=== PATIENT | female | born 1970 | race Hispanic/Latino ===

== ENCOUNTER 2018-09-02 08:56 | Emergency (ER) | payer OTHER ==
[2018-09-02 08:57] VITALS: BMI 34.5
[2018-09-02 08:58] VITALS: RESP 18; TEMP 98.6
[2018-09-02] MEDS ORDERED: Sodium Chloride 0.9% 1,000 ML IV STA (09:21)
--- NOTE | 2018-09-02 09:35 | ED PDOC ---
Syncope/Near Syncope/Dizziness Time Seen by Provider: 09/02/18 09:05 Chief Complaint (Nursing): Weakness/Neurological Deficit Chief Complaint (Provider): I was going to pass out again History Per: Patient History/Exam Limitations: no limitations Onset/Duration Of Symptoms: Sudden Onset Current Symptoms Are (Timing): Intermittent Episodes Associated Symptoms Preceding Syncopal Episode: Lightheadedness Possible Causative Factor(s): Lightheaded W/Standing, Lightheaded W/Exertion Fall Associated With With Symptoms: No Severity: Moderate Additional Complaint(s): 47yo female [place] via [place] where [place] States these episodes are happening more frequently, was seen at [facility] thursday and told she has a virus. Denies vomiting or diarrhea. Admits to mild headache, chest pain but denies SOB, orthopnea, leg pain/edema or hx blood clots. States dizzy episodes happened before had stress test many years ago never given formal diagnosis but symptoms now becoming more frequent and concerning. Past Medical History Reviewed: Historical Data, Nursing Documentation, Vital Signs Vital Signs: Last Vital Signs Temp 98.6 F 09/02/18 08:57 Pulse 67 09/02/18 08:57 Resp 18 09/02/18 08:57 BP 149/92 H 09/02/18 08:57 Pulse Ox 100 09/02/18 08:57 - Medical History PMH: No Chronic Diseases - Surgical History Other surgeries: BTL, myomectomy - Family History Family History: States: Unknown Family Hx - Social History Current smoker - smoking cessation education provided: No - Allergies Allergies/Adverse Reactions: Allergies Allergy/AdvReac Type Severity Reaction Status Date / Time No Known Allergies Allergy Verified 09/02/18 09:20 Review of Systems Constitutional: Negative for: Fever ENT: Negative for: Nose Discharge, Throat Pain Cardiovascular: Positive for: Chest Pain, Palpitations Respiratory: Negative for: Cough, Shortness of Breath Gastrointestinal: Negative for: Vomiting, Abdominal Pain, Diarrhea Genitourinary Female: Negative for: Dysuria, Vaginal Discharge, Vaginal Bleeding Musculoskeletal: Negative for: Neck Pain Skin: Negative for: Rash Neurological: Positive for: Weakness (generalized), Headache, Dizziness. Negative for: Incoordination, Change in Speech, Altered Mental Status Psych: Negative for: Anxiety, Suicidal ideation Physical Exam - Reviewed Nursing Documentation Reviewed: Yes Vital Signs Reviewed: Yes - Physical Exam Appears: Positive for: Non-toxic (tearful), No Acute Distress Head Exam: Positive for: ATRAUMATIC, NORMAL INSPECTION, NORMOCEPHALIC Skin: Positive for: Normal Color, Warm, DRY Eye Exam: Positive for: EOMI, Normal appearance, PERRL ENT: Positive for: Normal ENT Inspection Neck: Positive for: Normal, Painless ROM Cardiovascular/Chest: Positive for: Regular Rate, Rhythm Respiratory: Positive for: CNT, Normal Breath Sounds Pulses-Radial (L): 3+/4+ Pulses-Radial (R): 3+/4+ Gastrointestinal/Abdominal: Positive for: Soft. Negative for: Tenderness Back: Positive for: Normal Inspection Extremity: Positive for: Normal ROM. Negative for: Tenderness, Calf Tenderness, Swelling Neurologic/Psych: Positive for: Alert, down filler II-XII (intact), Oriented, Other (clear speech). Negative for: Motor/Sensory Deficits, Aphasia - Laboratory Results Result Diagrams: 09/02/18 09:25 09/02/18 09:25 - ECG ECG: Positive for: Interpreted By Me ECG Rhythm: Positive for: Normal QRS, Sinus Rhythm, Nonspecific Changes Rate: 76 O2 Sat by Pulse Oximetry: 100 Pulse Ox Interpretation: Normal Medical Decision Making Medical Decision Making: workup for recurrent presyncope initiated labs, EKG, CT brain and echo ordered labs reviewed DDimer neg hgb normal trop neg Preg neg Echo prelim report unremarkable awaiting cardiology read but patient now asymptomatic can followup as outpatient for result Has PMD in [place], will see for holter monitor and further testing orthostatics unremarkable Disposition - Clinical Impression Clinical Impression: Pre-syncope - Patient ED Disposition Is Patient to be Admitted: No Counseled Patient/Family Regarding: Studies Performed, Diagnosis, Need For F ollowup - Disposition Referrals: [facility] [Outside] William Rice MD [Staff Provider] - Disposition: Routine/Home Disposition Time: 14:05 Condition: STABLE Additional Instructions: Drink plenty of fluids. Avoid arising quickly from seated positions. See clinic for further testing and treatment and official report of echocardiogram. Instructions: Near Fainting (DC) Forms: [employer] (Slovenian)
[2018-09-02 09:36] LABS: BASO # 0.1 K/uL (0.0-0.2); BASO % 1.7 % (0.0-2.0); EOS # 0.2 K/uL (0.0-0.7); EOS % 3.6 % (0.0-4.0); HEMOGLOBIN 14.2 g/dL (12.0-16.0); LYMPH % 36.5 % (20.0-40.0); MEAN CELL VOLUME 91.3 fl (81.0-99.0); MEAN CORPUSCULAR HEMOGLOBIN 31.4 pg (27.0-31.0); MEAN CORPUSCULAR HGB CONC 34.4 g/dL (33.0-37.0); MEAN PLATELET VOLUME 8.7 fl (7.2-11.7); MONO # 0.3 K/uL (0.0-0.8); MONO % 6.3 % (0.0-10.0); NEUT # 2.9 K/uL (1.8-7.0); NEUT % 51.9 % (50.0-75.0); RBC 4.52 Mil/uL (3.80-5.20); RED CELL DISTRIBUTION WIDTH 13.7 % (11.5-14.5); WHITE BLOOD COUNT 5.5 K/uL (4.8-10.8)
[2018-09-02 09:48] LABS: ALB/GLOB RATIO 1.1 (1.0-2.1); ALBUMIN 4.3 g/dL (3.5-5.0); ALT/SGPT 21 U/L (9-52); AST/SGOT 24 U/L (14-36); BLOOD UREA NITROGEN 12 mg/dl (7-17); CALCIUM 9.6 mg/dL (8.4-10.2); GFR NON-AFRICAN AMERICAN > 60
[2018-09-02 09:59] LABS: B-TYPE NATRIURETIC PEPTIDE 19.5 pg/ml (0-450)
--- NOTE | 2018-09-02 11:06 | CT ---
Date of service: 09/02/2018 PROCEDURE: CT HEAD WITHOUT CONTRAST. HISTORY: dizzy presyncope headache COMPARISON: None available. TECHNIQUE: Axial computed tomography images were obtained through the head/brain without intravenous contrast. Radiation dose: Total exam DLP = 850.73 mGy-cm. This CT exam was performed using one or more of the following dose reduction techniques: Automated exposure control, adjustment of the mA and/or kV according to patient size, and/or use of iterative reconstruction technique. FINDINGS: HEMORRHAGE: No intracranial hemorrhage. BRAIN: No mass effect or edema. No atrophy or chronic microvascular ischemic changes. VENTRICLES: Unremarkable. No hydrocephalus. CALVARIUM: Unremarkable. PARANASAL SINUSES: Unremarkable as visualized. No significant inflammatory changes. MASTOID AIR CELLS: Unremarkable as visualized. No inflammatory changes. OTHER FINDINGS: Old depressed left lamina papyracea fracture. Old fracture posterior inferior medial left orbital wall with bony defect and herniation of orbital fat into left maxillary antrum. IMPRESSION: No intracranial mass, hemorrhage or evidence of acute infarct. Old left orbital injury as described. Otherwise unremarkable.
--- NOTE | 2018-09-02 13:32 | RAD ---
Date of service: 09/02/2018 HISTORY: Dizziness. COMPARISON: No prior. TECHNIQUE: Chest PA and lateral FINDINGS: LUNGS: No active pulmonary disease. PLEURA: No significant pleural effusion identified. No pneumothorax apparent. CARDIOVASCULAR: Normal. OSSEOUS STRUCTURES: No significant abnormalities. VISUALIZED UPPER ABDOMEN: Normal. OTHER FINDINGS: None. IMPRESSION: No active disease.
--- NOTE | 2018-09-02 18:25 | CARD ---
APPROVED REPORT Date of service: 09/02/2018 EXAM: Two-dimensional and M-mode echocardiogram with Doppler and color Doppler. Other Information Quality : Good[employer] : NSR INDICATION Syncope 2D DIMENSIONS IVSd1.09 (0.7-1.1cm)LVDd4.04 (3.9-5.9cm) LVOT Diameter1.79 (1.8-2.4cm)PWd1.24 (0.7-1.1cm) IVSs1.42 (0.8-1.2cm)LVDs2.41 (2.5-4.0cm) FS (%) 40.4 %PWs1.54 (0.8-1.2cm) M-Mode DIMENSIONS Left Atrium (MM)3.37 (2.5-4.0cm)IVSd1.13 (0.7-1.1cm) Aortic Root2.78 (2.2-3.7cm)LVDd4.19 (4.0-5.6cm) Aortic Cusp Exc.1.90 (1.5-2.0cm)PWd1.18 (0.7-1.1cm) IVSs1.54 cmFS (%) 35 % LVDs2.73 (2.0-3.8cm)PWs1.52 cm Aortic Valve AoV Peak Vifjgjry906.7cm/sAoV VTI20.7cmAO Peak GR.6mmHg LVOT Peak Vwxqxywk97.0cm/sLVOT VTI17.82cmAO Mean GR.3mmHg CRYSTAL (VMAX)0.72hg2JMJ (VTI)1.14cm2 Mitral Valve MV E Fvrxgspm93.3cm/sMV DECEL KATI390xaEF A Fatlbspp60.6cm/s MV NZA01tmO/A ratio0.8MVA (PHT)2.44cm2 TDI Lateral E' Peak V10.35cm/sMedial E' Peak V7.90cm/sE/Lateral E'5.0 E/Medial E'6.5 Pulmonary Valve PV Peak Aqfvyxsy931.6cm/s LEFT VENTRICLE The left ventricle is normal size. There is normal left ventricular wall thickness. The left ventricular systolic function is normal. The estimated ejection fraction is 60-65% No regional wall motion abnormalities noted.. Transmitral Doppler flow pattern is Grade I-abnormal relaxation pattern. No left ventricle thrombus noted on this study. There is no ventricular septal defect visualized. There is no left ventricular aneurysm. There is no mass noted in the left ventricle. RIGHT VENTRICLE The right ventricle is normal size. There is normal right ventricular wall thickness. The right ventricular systolic function is normal. ATRIA The left atrium size is normal. The right atrium size is normal. The interatrial septum is intact with no evidence for an atrial septal defect. AORTIC VALVE The aortic valve is normal in structure. No aortic regurgitation is present. There is no aortic valvular stenosis. There is no aortic valvular vegetation. MITRAL VALVE The mitral valve is normal in structure. There is no evidence of mitral valve prolapse. There is no mitral valve stenosis. There is no mitral valve regurgitation noted. TRICUSPID VALVE The tricuspid valve is normal in structure. There is no tricuspid valve regurgitation noted. There is no tricuspid valve prolapse or vegetation. There is no tricuspid valve stenosis. PULMONIC VALVE The pulmonary valve is normal in structure. There is no pulmonic valvular regurgitation. There is no pulmonic valvular stenosis. GREAT VESSELS The aortic root is normal in size. The ascending aorta is normal in size. The pulmonary artery is normal. The IVC is normal in size and collapses >50% with inspiration. PERICARDIAL EFFUSION There is no pericardial effusion. There is no pleural effusion. <Conclusion> The estimated ejection fraction is 60-65% Transmitral Doppler flow pattern is Grade I-abnormal relaxation pattern. The left atrium size is normal. There is no tricuspid valve regurgitation noted.
--- NOTE | 2018-09-02 18:32 | CARD ---
APPROVED REPORT Date of service: 09/02/2018 EKG Measurement Heart [id number] ND [id number] [id number] <Conclusion> Normal sinus rhythm Moderate voltage criteria for LVH, may be normal variant Nonspecific T wave abnormality Abnormal ECG
[2018-09-02 19:20] VITALS: BP 125/88; PULSE 88; O2SAT 99
== END 2018-09-02 17:00 | disposition left against medical advice (07) ==
LOC: H.ER 08:56
DX: R55 Syncope and collapse (principal)
CPT/HCPCS: 70450; 71046; 80053; 82948; 83735; 83880; 84484; 85025; 85378; 93005; 93306; 99285; J7030